=== PATIENT | female | born 1955 | race Caucasian/White ===

== ENCOUNTER 2022-09-11 11:41 | Outpatient (CLI) | payer MEDICARE, OTHER, SELFPAY ==
--- NOTE | 2022-09-11 | USCV_ITS ---
Cindy Eric Age: 67 Gender: F : 1955 Exam Date: 09/11/2022 12:09 Ordering Phys: Sherin Horton Technologist: COLIN Exam Location: [facility] – [place] Indication: DIZZINESS Risk Factors: Previous Vascular Surgery: Right Brachial BP: / Left Brachial BP: / Right Left Velocity (cm/s) Spectral Plaque Velocity (cm/s) Spectral Plaque Syst/Diast Broadening Syst/Diast Broadening 83.80/ 15.40 Prox CCA 72.50 / 13.20 59.80/ 14.50 Mid CCA 72.20 / 15.50 59.80/ 17.70 Distal CCA 57.40 / 15.50 56.50/ 16.80 Prox ICA 56.70 / 20.20 68.40/ 23.90 Mid ICA 73.60 / 23.50 57.10/ 22.20 Distal ICA 70.90 / 23.30 77.80 ECA 62.30 0.82 ICA/CCA 1.02 Antegrade Vertebral Antegrade 54.40/ 14.80 cm/s 39.20/ 7.80 cm/s Bi Subclavian Tri 173.4 132.8 0 0 CONCLUSIONS Right ICA stenosis <50%. Mild atheromatous plaque right carotid bulb/ICA. Left ICA stenosis <50%. Mild atheromatous plaque left carotid bulb/ICA. Normal antegrade Doppler flow noted in the right vertebral artery. Normal antegrade Doppler flow noted in the left vertebral artery. Nehemiah Merritt MD (Electronically Signed) Final Date: 11 September 2022 12:49 S
== END 2022-09-11 11:42 | disposition home or self-care (01) ==
PROVIDERS: Family Provider Family Medicine; PCP Family Medicine; Visit Provider Nurse Practitioner
DX: E11.69 Type 2 diabetes mellitus with other specified complication (principal); R42 Dizziness and giddiness; I65.23 Occlusion and stenosis of bilateral carotid arteries
CPT/HCPCS: 93880

== ENCOUNTER 2023-08-17 13:18 | Outpatient (CLI) | payer MEDICARE, SELFPAY ==
--- NOTE | 2023-08-17 13:26 | US_ITS ---
WS: [id number] RENAL ULTRASOUND HISTORY: STAGE 3A CHRONIC KIDNEY DZ COMPARISON: None available. TECHNIQUE: 2-D and color Doppler imaging of the kidney submitted. Right kidney: 10.8 cm x 5.3 cm x 4.6 cm. Cortex: 1.2 cm Normal echogenicity with no hydronephrosis or mass. Left kidney: 9.5 cm x 5.1 cm x 3.8 cm. Cortex: 0.9 cm Normal size kidney. Cortical cyst lower pole measures 2.0 x 1.7 x 2.5 cm. No solid mass or hydronephr osis. Aorta: Normal. Urinary Bladder: Normal distention. IMPRESSION: 1. No hydronephrosis or renal obstruction. 2. No renal atrophy. 3. Simple cyst lower pole LEFT kidney.
== END 2023-08-17 13:19 | disposition home or self-care (01) ==
LOC: RAD 13:19
PROVIDERS: Family Provider Family Medicine; PCP Family Medicine; Visit Provider Internal Medicine Nephrology
DX: N18.31 Chronic kidney disease, stage 3a (principal); N28.1 Cyst of kidney, acquired
CPT/HCPCS: 76770

== ENCOUNTER 2025-01-28 10:34 | Outpatient (CLI) | payer MEDICARE, SELFPAY ==
--- NOTE | 2025-01-28 10:46 | XR_ITS ---
WS: [id number] Exam: XR wrist RT min 3V* [id number] Date/Time of Exam: 01/28/2025 10:54 AM Reason For Exam: PAIN IN R WRIST No fracture. The joints are relatively well-maintained. Normal soft tissues. XR/XR wrist RT min 3V* [id number] IMPRESSION: 1. Negative RIGHT wrist.
== END 2025-01-28 10:35 | disposition home or self-care (01) ==
LOC: RAD 10:38
PROVIDERS: Family Provider Family Medicine; PCP Family Medicine; Visit Provider Nurse Practitioner
DX: M25.531 Pain in right wrist (principal)
CPT/HCPCS: 73110